=== PATIENT | male | born 1995 | race Two or more races ===

== ENCOUNTER 2022-03-10 22:10 | Emergency (ER) | payer OTHER ==
[~2022-03-10] VITALS: Ht 177.8 cm; Wt 86.0 kg
[2022-03-11] MEDS ORDERED: IBUP800T26 PO (00:41)
[2022-03-11 00:50] VITALS: BP 132/69
== END 2022-03-11 01:10 | disposition home or self-care (01) ==
LOC: ER 22:10
DX: S80.11XA Contusion of right lower leg, initial encounter (principal); S80.02XA Contusion of left knee, initial encounter; Z88.2 Allergy status to sulfonamides; W18.39XA Other fall on same level, initial encounter; Y93.89 Activity, other specified; Y92.89 Other specified places as the place of occurrence of the external cause; Y99.8 Other external cause status
CPT/HCPCS: 73562; 73590